=== PATIENT | male | born 1965 | race American Indian/Alaskan Native ===

== ENCOUNTER 2020-06-03 09:50 | Outpatient (CLI) | payer MEDICARE, OTHER ==
--- NOTE | 2020-06-03 11:32 | Cat Scan Report ---
CT ABDOMEN AND PELVIS WITHOUT CONTRAST INDICATION / CLINICAL INFORMATION: MALIGNA JILL OF PROSTATE. TECHNIQUE: Axial CT images were obtained through the abdomen and pelvis without IV contrast. All CT scans at [facility] location are performed using CT dose reduction for ALARA by means of automated exposure control. COMPARISON: None available. FINDINGS: LOWER CHEST: No significant abnormality. HEPATOBILIARY: No significant abnormality. PANCREAS/SPLEEN/ADRENALS: No significant abnormality. GENITOURINARY: 1.6 cm exophytic focus at the right interpolar region with attenuation greater than ex pected for simple cyst. Additional similar finding at the posterior aspect of the inferior pole measu ring 1.3 cm. Left kidney demonstrates no significant abnormality. No obstructive uropathy. Ureters an d bladder demonstrate no significant abnormality. GASTROINTESTINAL/MESENTERY: No significant abnormality. RETROPERITONEUM: No significant adenopathy. REPRODUCTIVE ORGANS: No significant abnormality. VASCULAR: Mild atherosclerotic calcification without acute abnormality. BODY WALL: No significant abnormality. SKELETAL SYSTEM: No significant abnormality. IMPRESSION: 1. In this patient with reported history of prostate cancer, there is no evidence of abdominopelvic m etastatic disease. 2. 2 small exophytic foci at the right renal interpolar region and inferior pole. Findings measure gr eater than expected for simple cysts. Recommend further evaluation with dedicated retroperitoneal ult rasound. Signer Name: Jerzy Mock MD Signed: 06/03/2020 11:28 AM Workstation Name: [id number]
--- NOTE | 2020-06-03 14:33 | Nuclear Medicine Report ---
NUCLEAR MEDICINE BONE SCAN, WHOLE BODY INDICATION: C61 PROSTATE CA. TECHNIQUE: 25.0 mCi of Tc-99m MDP were injected IV. Whole body images were obtained. COMPARISON: Noncontrast CT abdomen and pelvis performed the same day.. FINDINGS: Skeletal Structures: Fairly symmetric, likely degenerative uptake is present involving the cervical spine, shoulders, sternoclavicular joints, knees and ankles. Skeletal Lesions: There is a solitary focus of increased radiotracer uptake in the mid left tibia. Me tastatic lesion is difficult to exclude. Soft Tissues: Normal. Kidneys: Normal, symmetric activity. Additional Findings: None. IMPRESSION: Degenerative uptake as described. There is a solitary focus of uptake in the mid left tibia which is of uncertain etiology. Solitary me tastasis is difficult to exclude. Consider radiographic correlation.. Signer Name: Krishna Nicholson Jr, MD Signed: 06/03/2020 2:29 PM Workstation Name: [id number]
== END 2020-06-03 09:51 | disposition home or self-care (01) ==
LOC: NM 09:50
PROVIDERS: ATTEND Urology
DX: C61 Malignant neoplasm of prostate (principal); N28.1 Cyst of kidney, acquired; I25.10 Atherosclerotic heart disease of native coronary artery without angina pectoris; M47.816 Spondylosis without myelopathy or radiculopathy, lumbar region
CPT/HCPCS: 74176; 78306; A9503